=== PATIENT | female | born 1985 | race Caucasian/White ===

== ENCOUNTER 2021-09-09 05:46 | Emergency (ER) | payer OTHER, MEDICAID ==
[~2021-09-09] VITALS: Ht 160 cm; Wt 81.7 kg
[~2021-09-09 05:46] MED LIST: PRENATAL
[2021-09-09] MEDS ORDERED: EFFEXOR (06:04)
[2021-09-09 06:26] LABS: URINE BILIRUBIN NEGATIVE (Negative); URINE BLOOD NEGATIVE (Negative); URINE CLARITY CLEAR; URINE COLOR YELLOW; URINE GLUCOSE-RANDOM NEGATIVE (Negative); URINE KETONES 1+ (Negative); URINE LEUKOCYTES-REFLEX NEGATIVE (Negative); URINE NITRITE-REFLEX NEGATIVE (Negative); URINE PROTEIN NEGATIVE (Negative); URINE SPECIFIC GRAVITY >= 1.030 (1.005-1.030); URINE UROBILINOGEN 0.2 E.U./dl (0.2-1.0)
[2021-09-09 06:33] LABS: AMP/METHAMP Negative (Negative); BARBITURATES Negative (Negative); BENZODIAZEPINES Negative (Negative); COCAINE Negative (Negative); METHADONE Negative (Negative); OPIATES Negative (Negative); PCP Negative (Negative); THC Negative (Negative)
[2021-09-09 07:25] VITALS: BP 114/59
== END 2021-09-09 07:25 | disposition home or self-care (01) ==
LOC: M.ERS 05:46
PROVIDERS: Emergency Medicine
DX: T74.21XA Adult sexual abuse, confirmed, initial encounter (principal); Z20.822 Contact with and (suspected) exposure to COVID-19; Z88.5 Allergy status to narcotic agent; Y07.9 Unspecified perpetrator of maltreatment and neglect; Y92.89 Other specified places as the place of occurrence of the external cause

== ENCOUNTER 2021-10-16 20:49 | Emergency (ER) | payer OTHER, MEDICAID ==
[~2021-10-16] VITALS: Ht 160 cm; Wt 81.7 kg
[~2021-10-16 20:49] MED LIST changes: +EFFEXOR
[2021-10-16 20:59] VITALS: BP 145/80
[2021-10-16] MEDS ORDERED: EFFEXOR XR37.5 MG PO (21:02)
[2021-10-16] MEDS ORDERED: AUGMENTIN 875-1 EACH PO (21:37)
[2021-10-16] MEDS ORDERED: TESSALON PERLE100 MG PO (21:37)
== END 2021-10-16 21:46 | disposition home or self-care (01) ==
LOC: M.ERS 20:49
DX: J32.1 Chronic frontal sinusitis (principal); J32.0 Chronic maxillary sinusitis; F41.9 Anxiety disorder, unspecified; Z79.899 Other long term (current) drug therapy; Z88.5 Allergy status to narcotic agent; Z88.2 Allergy status to sulfonamides; Z88.8 Allergy status to other drugs, medicaments and biological substances